=== PATIENT | female | born 1965 | race Caucasian/White ===

== ENCOUNTER 2019-01-30 18:52 | Observation (INO) | payer OTHER ==
[~2019-01-30] VITALS: Ht 261.6 cm; Wt 103.8 kg
[~2019-01-30 18:52] MED LIST: BENADRYL25 MG PO; CLON.5 PO; CYCL10 PO; OLAN10 PO; Omeprazole20 M1 PO; Pepcid20 MG PO; Prednisone50 MG PO; VENL37.5ER PO; ZOLP10; Zantac150 MG PO
[2019-01-30] MEDS ORDERED: MIRT15 PO (19:36)
[2019-01-30 20:20] LABS: BASOPHILS ABSOLUTE AUTO 0.02 K/mm3 (0.00-0.23); BASOPHILS PERCENT AUTO 0 % (0-2); EOSINOPHILS ABSOLUTE AUTO 0.13 K/mm3 (0.00-0.68); EOSINOPHILS PERCENT AUTO 2 % (0-6); Hematocrit 38.2 % (33.0-51.0); Hemoglobin 12.2 g/dL (11.5-16.0); IMMATURE GRAN ABSOLUTE AUTO 0.02 K/mm3 (0.00-0.10); IMMATURE GRAN PERCENT AUTO 0 % (0-1); LYMPHOCYTES ABSOLUTE AUTO 3.16 K/mm3 (0.84-5.20); LYMPHOCYTES PERCENT AUTO 35 % (21-46); MONOCYTES ABSOLUTE AUTO 0.64 K/mm3 (0.16-1.47); MONOCYTES PERCENT AUTO 7 % (4-13); Mean Corpuscular HGB 28.4 pg (26.0-34.0); Mean Corpuscular HGB Conc 31.9 g/dL (31.5-36.5); Mean Corpuscular Volume 89 fL (80-100); Mean Platelet Volume 10.9 fL (9.1-12.4); NEUTROPHILS ABSOLUTE AUTO 4.95 K/mm3 (1.96-9.15); NEUTROPHILS PERCENT AUTO 56 % (41-73); Platelet Count 287 K/mm3 (150-400); RDW Coefficient Variation 13.2 % (11.7-14.2); RDW Standard Deviation 42.9 fL (35.1-46.3); Red Blood Cell Count 4.29 M/mm3 (3.80-5.20); White Blood Cell Count 8.92 K/mm3 (4.00-11.30)
[2019-01-30 20:41] LABS: Alanine Aminotransfer (ALT/SGP 20 U/L (12-78); Albumin, Blood 3.5 g/dL (3.4-5.0); Alk Phos 97 U/L (50-136); Anion Gap 6 mmol/L (6-16); Aspartate Aminotrans (AST/SGOT 14 U/L (12-37); Bilirubin, Total 0.3 mg/dL (0.1-1.0); Blood Urea Nitrogen 12 mg/dL (8-24); CO2, Blood 28 mmol/L (21-32); Calcium, Blood 8.7 mg/dL (8.5-10.1); Chloride, Blood 107 mmol/L (98-108); Creatinine, Blood 0.86 mg/dL (0.40-1.00); Globulin, Blood 3.5 g/dL (2.2-4.0); Glomerular Filtration Rate >60 (60-); Glucose, Blood 109 mg/dL (70-99); Potassium, Blood 3.5 mmol/L (3.5-5.5); Sodium, Blood 141 mmol/L (136-145); Troponin I <0.015 ng/mL (0.000-0.040)
--- NOTE | 2019-01-31 04:49 | NUR ---
SHIFT SUMMARY: PATEINT ARRIVED TO [facility] AT APPROX 2300 VIA GURNEY FROM ED. PATIENT ABLE TO AMBULATE WITH NO ASSIST, ALERT AND ORIENTED, SKIN C/D/I WITH NO ISSUES. PATIENT ADMISSION COMPLETED AND PATIENT ORIENTED TO CALL LIGHT, HOSPITAL PROCEEDURES AND POLICIES. VSS, CALL LIGHT WITHIN REACH AND NO ISSUES NOTED THIS SHIFT, BED LOW AND LOCKED.
--- NOTE | 2019-01-31 08:05 | NUR ---
AM ASSESSMENT: Pt resting in bed. Woke to verbal stimulus. LS with some crackles in bases and diminished. HR reg. BT positive. Pulses palp. Denies dizziness, chest pain or SOB. Pt is A/Ox4. No weakness or neuro defficit seen. Eyes with PERRL, follows commands, no droop or defficit seen. VSS. Call light in reach. Will continue to monitor.
--- NOTE | 2019-01-31 10:43 | NUR ---
Echocardiogram completed.
--- NOTE | 2019-01-31 16:15 | NUR ---
neuro assessment: No changes in neuro assessment from am. No strength defficit, eyes PERRL, denies numbness or tinging, no facial droop or tounge deveation. Stable at this time. Will monitor.
--- NOTE | 2019-01-31 19:15 | NUR ---
Shift summary: Pt up independently in room. VSS throughout shift. Pt has had no changes in neurologic status. Pt has had no dizziness, chest pain, or issues this shift. Plan for 2nd portion of stress test tomorrow. Report given to night rn. Stable at end of shift.
--- NOTE | 2019-02-01 06:19 | NUR ---
SHIFT SUMMARY: PATIENT ALERT AND ORIENTED. REMAINED STABLE DURING SHIFT. BED POSITIONED LOW AND LOCKED. CALL LIGHT WITHIN REACH.
[2019-02-01 07:25] LABS: CHOL/HDL RATIO 3.8; Cholesterol 223 mg/dL (50-200); HDL Cholesterol 59 mg/dL (>39); LDL/HDL RATIO 1.9; Low Density Lipoprotein Chol 111 mg/dL (0-110); Triglycerides 267 mg/dL (30-160); Very Low Density Lipoprot Chol 53 mg/dL (6-32)
--- NOTE | 2019-02-01 11:26 | NUR ---
pt is a/ox3, cooperative with care, follows commands well, denies pain, states she slept well, but states that there are a lot of interuptions for care. explained why. lungs are clear in upper [place], course in bases, resp even and unlabored, no cough noted, hrr, tele in place running sr per monitor, see strip, no edema noted, ppp+2, cap refill <3sec, vs stable, iv site is clear and patent, btx4, abd round soft nontender, voids without diff, skin c/w/d, maew, stevenson, call light in reach.
--- NOTE | 2019-02-01 12:45 | NUR ---
PT RESTING IN BED, DENIES ANY COMPLAINTS, ASKING ABOUT GOING HOME TODAY AFTER HER TEST. CALL LIGHT IN REACH.
[2019-02-01] MEDS ORDERED: METO25ER PO (17:58)
[2019-02-01] MEDS ORDERED: VITAMIN D5000 UNIT PO (17:59)
[2019-02-01] MEDS ORDERED: LOSA50 PO (18:02)
--- NOTE | 2019-02-01 18:40 | NUR ---
PT HAD HER SECOND PART OF HER STRESS TEST TODAY, IT IS NEG. CALLED DR. CHAVEZ, HE WILL BE SENDING HER HOME TODAY. PT HAS NO ACUTE CHANGES THIS SHIFT. CALL LIGHT IN REACH.
--- NOTE | 2019-02-01 19:14 | NUR ---
DISCHARGE INSTRUCTIONS GIVEN VERBALIZE UNDER STANDING, DISCHARGE TO HOME WITH FAMILY, NO IV, EXIT HOSPITAL AMBULATING WITHOUT ASSIST.
== END 2019-02-01 19:00 | disposition home or self-care (01) ==
LOC: ER 18:52 → PCU 18:53
PROVIDERS: Emergency Medicine; Internal Medicine; ADMIT Internal Medicine
DX: R55 Syncope and collapse (principal); S00.83XA Contusion of other part of head, initial encounter; I47.1 Supraventricular tachycardia; I10 Essential (primary) hypertension; K21.9 Gastro-esophageal reflux disease without esophagitis; F32.9 Major depressive disorder, single episode, unspecified; F41.1 Generalized anxiety disorder; F17.210 Nicotine dependence, cigarettes, uncomplicated; E66.01 Morbid (severe) obesity due to excess calories; Z79.899 Other long term (current) drug therapy; Z88.5 Allergy status to narcotic agent; Z88.1 Allergy status to other antibiotic agents; Z88.8 Allergy status to other drugs, medicaments and biological substances; Z68.41 Body mass index [BMI] 40.0-44.9, adult; W19.XXXA Unspecified fall, initial encounter
CPT/HCPCS: 36415; 70450; 71046; 78452; 80053; 80061; 84443; 84484; 85025; 93005; 93010; 93017; 93306; 96372; 99285-25; A9500; G0378; J1650

== ENCOUNTER → 2020-06-08 | Outpatient (CLI) | payer OTHER ==
[~2020-06-08] MED LIST changes: +LOSA50 PO; +METO25ER PO; +MIRT15 PO; +VITAMIN D5000 UNIT PO
[2020-06-14 14:31] LABS: Stool Occult Bld Immuno 1 Negative (NEGATIVE)
== END | disposition home or self-care (01) ==
LOC: LAB SHORT 10:18 → LAB 10:18
PROVIDERS: Physician Assistant
DX: Z12.11 Encounter for screening for malignant neoplasm of colon (principal); E11.9 Type 2 diabetes mellitus without complications
CPT/HCPCS: G0328

== ENCOUNTER → 2021-12-09 | Outpatient (CLI) | payer OTHER ==
[2021-12-09 08:34] LABS: Source, Urine Clean Catch
[2021-12-09 13:16] LABS: Appearance, Urine Clear (Clear); Bilirubin, Urine Neg (Neg); Blood, Urine Neg (Neg); Color, Urine Yellow (P-Yellow); Glucose Qualitative, Urine Neg (Neg); Ketones, Urine Neg (Neg); Leukocyte Esterase, Urine Neg (Neg); Nitrite, Urine Neg (Neg); Protein, Urine 1+ (Neg); Urobilinogen, Urine NORM (Normal)
[2021-12-09 13:45] LABS: Protein, Urine Random 35.1 mg/dL (0.0-11.9); Protein/Creat Ratio, Ur Random 0.3
== END ==
LOC: LAB SHORT 08:22
PROVIDERS: Internal Medicine Nephrology
DX: N17.9 Acute kidney failure, unspecified (principal); I10 Essential (primary) hypertension
CPT/HCPCS: 82570; 84156

== ENCOUNTER → 2022-08-17 | Outpatient (CLI) | payer OTHER ==
[2022-08-19 12:21] LABS: Stool Occult Bld Immuno 1 Negative (NEGATIVE)
== END ==
LOC: LAB SHORT 12:00 → LAB 12:00
PROVIDERS: Nurse Practitioner Family
DX: Z12.11 Encounter for screening for malignant neoplasm of colon (principal)
CPT/HCPCS: G0328

== ENCOUNTER → 2022-12-17 | Outpatient (CLI) | payer OTHER | END | disposition home or self-care (01) | LOC: LAB SHORT 17:22 → LAB 17:22 | DX: R82.90 Unspecified abnormal findings in urine (principal) | CPT/HCPCS: 87086 ==

== ENCOUNTER 2025-02-21 09:51 | Day surgery (SDC) | payer OTHER ==
[~2025-02-21] VITALS: Ht 162.6 cm; Wt 97.0 kg
[~2025-02-21 09:51] MED LIST changes: +BACL10 PO; +FAMO40 PO; +Lactated Ringer's 1,000 ML IV ONE; +QUET300 PO; +VITAMIN D31000 UNI1 PO
[2025-02-21] MEDS ORDERED: CeFAZolin Sodium 2,000 MG VIAL ONE (10:06)
[2025-02-21] MEDS ORDERED: Lactated Ringer's 1,000 ML IV ONE (10:27)
--- NOTE | 2025-02-21 11:01 | NUR ---
02/21/25 1101 Mandy Sumner REPORT FROM [facility]. PT RESTING IN [facility], GAVE HER A PILLOW FOR COMFORT. DENIES ANY FURTHER NEEDS AT THIS TIME.
[2025-02-21] MEDS ORDERED: Midazolam HCl 1MG / ML 2ML Vial ONE (11:22)
[2025-02-21] MEDS ORDERED: FentaNYL Citrate 50 MCG/ML 2 ML Injection ONE (11:22)
[2025-02-21] MEDS ORDERED: Ropivacaine 0.5% HCL/PF 5 MG/ML 30ML Vial ONE (11:26)
[2025-02-21] MEDS ORDERED: propofoL 20 ML IV ONE (12:11)
[2025-02-21] MEDS ORDERED: Ondansetron HCl 2 MG / ML 2ML Vial ONE (12:12)
[2025-02-21] MEDS ORDERED: Dexamethasone Sod Phos 10 MG/ML 1ML VIAL ONE (12:12)
[2025-02-21 14:35] VITALS: BP 119/80
== END 2025-02-21 14:32 | disposition home or self-care (01) ==
LOC: ORSCSDS 09:51
PROVIDERS: Orthopaedic Surgery
PROC: 0RQT0ZZ Repair Left Carpometacarpal Joint, Open Approach (ICD-10-PCS; principal; 2025-02-21 11:30)
PROC: 0LN60ZZ Release Left Lower Arm and Wrist Tendon, Open Approach (ICD-10-PCS; principal; 2025-02-21 11:30)
DX: M18.12 Unilateral primary osteoarthritis of first carpometacarpal joint, left hand (principal); M65.4 Radial styloid tenosynovitis [de Quervain]; I10 Essential (primary) hypertension; E11.9 Type 2 diabetes mellitus without complications; Z87.891 Personal history of nicotine dependence; E66.01 Morbid (severe) obesity due to excess calories; Z68.36 Body mass index [BMI] 36.0-36.9, adult; F41.9 Anxiety disorder, unspecified; F32.A Depression, unspecified; Z79.899 Other long term (current) drug therapy
CPT/HCPCS: 82947; C1713; J0690; J1100; J2250; J2405; J2704; J2795; J3010; J7120

== ENCOUNTER 2025-08-26 11:02 | Day surgery (SDC) | payer OTHER ==
[~2025-08-26] VITALS: Ht 162.6 cm; Wt 96.4 kg
[~2025-08-26 11:02] MED LIST changes: -Lactated Ringer's 1,000 ML IV ONE; +NS 500 ML IV ONE
[2025-08-26] MEDS ORDERED: CeFAZolin Sodium 2,000 MG VIAL ONE (11:30)
[2025-08-26] MEDS ORDERED: NS 500 ML IV ONE (11:37)
[2025-08-26] MEDS ORDERED: METO50ER PO (11:41)
[2025-08-26] MEDS ORDERED: Midazolam HCl 1MG / ML 2ML Vial ONE (12:44)
[2025-08-26] MEDS ORDERED: Lidocaine 1%-Epineph 1:200000 30 ML SDV INJ ONE (12:55)
[2025-08-26 13:31] VITALS: BP 116/62
== END 2025-08-26 13:28 | disposition home or self-care (01) ==
LOC: ORSCSDS 11:02
PROVIDERS: Orthopaedic Surgery
PROC: 0LN70ZZ Release Right Hand Tendon, Open Approach (ICD-10-PCS; principal; 2025-08-26 12:30)
DX: M65.331 Trigger finger, right middle finger (principal); E11.22 Type 2 diabetes mellitus with diabetic chronic kidney disease; I12.9 Hypertensive chronic kidney disease with stage 1 through stage 4 chronic kidney disease, or unspecified chronic kidney disease; N18.9 Chronic kidney disease, unspecified; F41.9 Anxiety disorder, unspecified; F32.A Depression, unspecified; K21.9 Gastro-esophageal reflux disease without esophagitis; F43.10 Post-traumatic stress disorder, unspecified; E66.9 Obesity, unspecified; Z68.36 Body mass index [BMI] 36.0-36.9, adult; Z87.891 Personal history of nicotine dependence; Z79.899 Other long term (current) drug therapy
CPT/HCPCS: 82947; J0690; J2250; J7040